=== PATIENT | female | born 1990 | race Caucasian/White ===

== ENCOUNTER 2022-08-18 08:49 | Emergency (ER) | payer MEDICAID ==
[~2022-08-18 08:49] MED LIST: CLIN-97 PO; HYDR20OI TOP; IVER3TAB2 PO; NO HOME MEDS
== END 2022-08-18 11:53 | disposition left against medical advice (07) ==
LOC: ER 08:49
DX: J00 Acute nasopharyngitis [common cold] (principal); Z53.21 Procedure and treatment not carried out due to patient leaving prior to being seen by health care provider

== ENCOUNTER 2022-11-06 09:39 | Emergency (ER) | payer MEDICAID ==
[~2022-11-06] VITALS: Ht 154.9 cm; Wt 70.5 kg
[2022-11-06 09:57] VITALS: BP 151/88
[2022-11-06] MEDS ORDERED: ketorolac trometh inj. 60 MG/2 ML VIAL IM ONE (10:35)
[2022-11-06] MEDS ORDERED: HYDR-3965 PO (10:48)
== END 2022-11-06 11:01 | disposition home or self-care (01) ==
LOC: ER 09:42
DX: S92.514A Nondisplaced fracture of proximal phalanx of right lesser toe(s), initial encounter for closed fracture (principal); F41.9 Anxiety disorder, unspecified; Z90.49 Acquired absence of other specified parts of digestive tract; Z98.51 Tubal ligation status; Z88.8 Allergy status to other drugs, medicaments and biological substances; Z88.6 Allergy status to analgesic agent; Z88.2 Allergy status to sulfonamides; Z88.1 Allergy status to other antibiotic agents; Z79.899 Other long term (current) drug therapy; W54.1XXA Struck by dog, initial encounter; Y93.89 Activity, other specified; Y92.89 Other specified places as the place of occurrence of the external cause; Y99.8 Other external cause status
CPT/HCPCS: 73630; 96372; 99283; J1885